=== PATIENT | female | born 1960 | race Caucasian/White ===

== ENCOUNTER → 2021-04-17 | Outpatient (CLI) | payer BC, OTHER ==
--- NOTE | 2021-04-17 17:44 | RAD ---
Bilateral digital screening 2-D and 3-D (digital breast tomosynthesis) mammogram: Reason for examination: Routine screening. Comparison: None. The patient's last mammogram was performed about 15 years ago. Interpretation was made with the benefit of CAD. FINDINGS: Breast density: Category B. There are scattered areas of fibroglandular density. No suspicious breast mass, malignant appearing calcifications, or architectural distortion is seen. T here is a slightly prominent on 1.3 cm lymph node in the low right axilla that is likely reactive and is not unusual if the patient has had a recent vaccination. IMPRESSION: No evidence of malignancy. Assessment: BI-RADS 1. Negative. Recommendation: Routine screening mammograms. The patient will receive a letter with the results in the mail. Patient information will be entered i nto the mammography reminder system with a target recall date for the next mammogram. A reminder maury er will be generated. Electronically signed by: Rupinder Mccann MD (04/17/2021 5:41 PM) [id number]
== END ==
LOC: MAMMO 10:51
PROVIDERS: ATTEND Family Medicine
DX: Z12.31 Encounter for screening mammogram for malignant neoplasm of breast (principal)
CPT/HCPCS: 77063; 77067